=== PATIENT | male | born 1965 | race Native Hawaiian/Other Pacific Islander ===

== ENCOUNTER 2018-09-06 17:32 | Emergency (ER) | payer OTHER ==
[~2018-09-06] VITALS: Ht 175.3 cm; Wt 90.7 kg
[~2018-09-06 17:32] MED LIST: FAMO-119 PO; OMEP20TA7 PO; ONDA4TAB8 SL
[2018-09-06 18:17] LABS: BASOPHILS % (AUTO) 0 % (0-10); EOSINOPHILS # (AUTO) 0.1 10^3/uL (0.0-0.3); EOSINOPHILS % (AUTO) 2 % (0-10); HEMATOCRIT 43 % (40-54); HEMOGLOBIN 14.7 G/DL (13.3-17.7); LYMPHOCYTES # (AUTO) 2.3 X 10^3 (1.0-4.0); LYMPHOCYTES % (AUTO) 39 % (12-44); MEAN CORPUSCULAR HEMOGLOBIN 30 PG (25-34); MEAN CORPUSCULAR HGB CONC 34 G/DL (32-36); MEAN CORPUSCULAR VOLUME 87 FL (80-99); MEAN PLATELET VOLUME 9.6 FL (7.4-10.4); MONOCYTES # (AUTO) 0.9 X 10^3 (0.0-1.0); MONOCYTES % (AUTO) 15 % (0-12); NEUTROPHILS # (AUTO) 2.6 X 10^3 (1.8-7.8); NEUTROPHILS % (AUTO) 44 % (42-75); PLATELET COUNT 261 10^3/uL (130-400); RED CELL DISTRIBUTION WIDTH 12.8 % (10.0-14.5); WHITE BLOOD COUNT 5.9 10^3/uL (4.3-11.0)
[2018-09-06] MEDS ORDERED: PANTOPRAZOLE 40 MG (PROTONIX) VIAL IV STA (18:17)
[2018-09-06] MEDS ORDERED: LACTATED RINGERS 1,000 ML IV ONE (18:17)
[2018-09-06 18:23] LABS: BILIRUBIN,URINE NEGATIVE (NEGATIVE); COLOR,URINE YELLOW; GLUCOSE, URINE (UA) 4+ (NEGATIVE); KETONES,URINE NEGATIVE (NEGATIVE); LEUKOCYTE ESTERASE ,URINE NEGATIVE (NEGATIVE); NITRITE,URINE NEGATIVE (NEGATIVE); PH,URINE 5 (5-9); PROTEIN,URINE 1+ (NEGATIVE); UROBILINOGEN,URINE NORMAL (NORMAL)
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
[2018-09-06 18:30] LABS: CLARITY,URINE CLEAR
[2018-09-06 18:31] LABS: BACTERIA,URINE NEGATIVE /HPF; SQUAMOUS EPITHELIAL CELL,UR RARE /HPF
[2018-09-06 18:39] LABS: ALANINE AMINOTRANSFERASE 19 U/L (0-55); ALKALINE PHOSPHATASE 68 U/L (40-136); AMYLASE 61 U/L (25-125); BILIRUBIN,TOTAL 0.4 MG/DL (0.1-1.0); BUN/CREATININE RATIO 21; CALCIUM 9.2 MG/DL (8.5-10.1); CARBON DIOXIDE 25 MMOL/L (21-32); CHLORIDE 101 MMOL/L (98-107); CREATININE SERUM 0.95 MG/DL (0.60-1.30); GFR ESTIMATED > 60; GLUCOSE 206 MG/DL (70-105); LIPASE 46 U/L (8-78); SODIUM 134 MMOL/L (135-145); TOTAL PROTEIN 6.7 GM/DL (6.4-8.2)
[2018-09-06] MEDS ORDERED: NS IV 1000 ML 1,000 ML IV SCH (18:45)
[2018-09-06] MEDS ORDERED: HOLD METFORMIN - RECEIVED CONTRAST 20 ML VIAL IV SCH (19:00)
[2018-09-06] MEDS ORDERED: IOHEXOL 350 MG/ML 100 ML (OMNIPAQUE 350) VIAL IV ONE (19:00)
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
--- NOTE | 2018-09-06 19:29 | Diagnostic Imaging Report ---
PROCEDURE: CT abdomen and pelvis with contrast. TECHNIQUE: Multiple contiguous axial images were obtained through the abdomen and pelvis after administration of intravenous contrast. Auto Exposure Controls were utilized during the CT exam to meet ALARA standards for radiation dose reduction. INDICATION: Upper abdominal pain with nausea for one week. COMPARISON STUDY: CT scan of the chest, abdomen, and pelvis from 06/19/2015. FINDINGS: The lung bases are clear. The liver, gallbladder, spleen, pancreas, adrenal glands, and kidneys appear normal. The urinary bladder and prostate gland are normal. No hernias are present. There is a normal appearance of the appendix and bowel loops. No ascites, free air, or abnormal adenopathy is present. Mild arterial sclerosis is present. Some degenerative changes are present in the spine and sacroiliac joints. IMPRESSION: There are no acute findings in the abdomen or pelvis. Dictated by: Dictated on workstation # [id number]
[2018-09-06] MEDS ORDERED: HYOS0.1283 SL (19:43)
[2018-09-06] MEDS ORDERED: PANT40TA2 PO (19:43)
[2018-09-06 21:00] VITALS: BP 133/88
== END 2018-09-06 21:01 | disposition home or self-care (01) ==
LOC: EDUNIT# 17:32 → ER 17:34
DX: R10.13 Epigastric pain (principal); E11.65 Type 2 diabetes mellitus with hyperglycemia; I10 Essential (primary) hypertension; Z91.14 Patient's other noncompliance with medication regimen; Z87.19 Personal history of other diseases of the digestive system; Z87.891 Personal history of nicotine dependence
CPT/HCPCS: 36415; 74022; 74177; 80053; 81000; 82150; 83036; 83690; 85025

== ENCOUNTER 2020-11-30 21:37 | Emergency (ER) | payer BC ==
[~2020-11-30] VITALS: Ht 175 cm; Wt 81.8 kg
[~2020-11-30 21:37] MED LIST changes: +HYOS0.1283 SL; +PANT40TA2 PO
[2020-11-30 22:27] LABS: BASOPHILS % (AUTO) 1 % (0-10); EOSINOPHILS # (AUTO) 0.4 10^3/uL (0.0-0.3); EOSINOPHILS % (AUTO) 5 % (0-10); HEMATOCRIT 51 % (40-54); HEMOGLOBIN 17.6 g/dL (13.3-17.7); LYMPHOCYTES % (AUTO) 36 % (12-44); MEAN CORPUSCULAR HEMOGLOBIN 29 pg (25-34); MEAN CORPUSCULAR HGB CONC 35 g/dL (32-36); MEAN CORPUSCULAR VOLUME 85 fL (80-99); MEAN PLATELET VOLUME 9.7 fL (9.0-12.2); MONOCYTES # (AUTO) 0.5 10^3/uL (0.0-1.0); MONOCYTES % (AUTO) 6 % (0-12); NEUTROPHILS # (AUTO) 4.4 10^3/uL (1.8-7.8); NEUTROPHILS % (AUTO) 53 % (42-75); PLATELET COUNT 302 10^3/uL (130-400); WHITE BLOOD COUNT 8.3 10^3/uL (4.3-11.0)
[2020-11-30 22:41] LABS: ALBUMIN 4.3 GM/DL (3.2-4.5); CHLORIDE 98 MMOL/L (98-107); POTASSIUM 4.1 MMOL/L (3.6-5.0); SODIUM 135 MMOL/L (135-145)
[2020-11-30 22:43] LABS: CALCIUM 9.5 MG/DL (8.5-10.1)
[2020-11-30 22:44] LABS: GLUCOSE 240 MG/DL (70-105)
[2020-11-30 22:45] LABS: CARBON DIOXIDE 25 MMOL/L (21-32)
[2020-11-30 22:46] LABS: BILIRUBIN,TOTAL 0.6 MG/DL (0.1-1.0)
[2020-11-30 22:47] LABS: ALKALINE PHOSPHATASE 83 U/L (40-136)
[2020-11-30 22:48] LABS: CREATININE SERUM 0.92 MG/DL (0.60-1.30); GFR ESTIMATED > 60
[2020-11-30 22:49] LABS: BUN/CREATININE RATIO 25
[2020-11-30 22:50] LABS: ALANINE AMINOTRANSFERASE 17 U/L (0-55)
[2020-11-30 22:51] LABS: LIPASE 45 U/L (8-78)
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
[2020-12-01] MEDS ORDERED: NITROGLYCERIN 0.4 MG SL TABS BTL 25'S SL PRN (00:45)
[2020-12-01] MEDS ORDERED: FAMOTIDINE 20 MG (PEPCID) TABLET PO STA (01:06)
[2020-12-01] MEDS ORDERED: ANTACID SUSP 30 ML UDC (MYLANTA) PO ONE (01:15)
[2020-12-01] MEDS ORDERED: ASPIRIN 81 MG CHEW (CHILDREN'S ASA) PO ONE (01:15)
[2020-12-01] MEDS ORDERED: LIDOCAINE 2% VISCOUS 15 ML UDC PO ONE (01:15)
[2020-12-01] MEDS ORDERED: SUCR1TAB36 PO (01:57)
[2020-12-01] MEDS ORDERED: OMEP20TA7 PO (01:57)
[2020-12-01 02:05] VITALS: BP 155/80
--- NOTE | 2020-12-01 08:12 | Diagnostic Imaging Report ---
EXAMINATION: Chest radiograph, portable AP view. DATE: 12/01/2020 12:54 AM INDICATION: 55-year-old male, chest pain. COMPARISON: June 19, 2015. FINDINGS: There are redemonstrated foreign bodies projecting near the medial aspect of the left clavicle. Heart size and mediastinal contours are unchanged and unremarkable. There is no identified pneumothorax. There is no large pleural effusion. There is no identified focal airspace consolidation. There is a chronic appearing deformity of the right lateral clavicle. IMPRESSION: 1. No identified acute cardiopulmonary abnormality. Dictated by: Dictated on workstation # [id number]
== END 2020-12-01 02:05 | disposition home or self-care (01) ==
LOC: EDUNIT# 21:37 → ER 21:39
DX: K21.9 Gastro-esophageal reflux disease without esophagitis (principal); I10 Essential (primary) hypertension; E11.9 Type 2 diabetes mellitus without complications; Z18.10 Retained metal fragments, unspecified; Z79.899 Other long term (current) drug therapy
CPT/HCPCS: 36415; 71045; 80053; 83690; 84484; 85025; 93005

== ENCOUNTER 2021-05-11 03:40 | Emergency (ER) | payer BC ==
[~2021-05-11] VITALS: Ht 175 cm; Wt 81.8 kg
[~2021-05-11 03:40] MED LIST changes: +SUCR1TAB36 PO
[2021-05-11] MEDS ORDERED: PANTOPRAZOLE 40 MG (PROTONIX) VIAL IV ONE (04:00)
[2021-05-11] MEDS ORDERED: ASPIRIN 81 MG CHEW (CHILDREN'S ASA) PO ONE (04:00)
[2021-05-11 04:08] LABS: BASOPHILS # (AUTO) 0.1 10^3/uL (0.0-0.1); BASOPHILS % (AUTO) 1 % (0-10); EOSINOPHILS # (AUTO) 1.6 10^3/uL (0.0-0.3); EOSINOPHILS % (AUTO) 17 % (0-10); HEMATOCRIT 49 % (40-54); HEMOGLOBIN 17.1 g/dL (13.3-17.7); LYMPHOCYTES # (AUTO) 3.5 10^3/uL (1.0-4.0); LYMPHOCYTES % (AUTO) 37 % (12-44); MEAN CORPUSCULAR HEMOGLOBIN 29 pg (25-34); MEAN CORPUSCULAR HGB CONC 35 g/dL (32-36); MEAN CORPUSCULAR VOLUME 85 fL (80-99); MEAN PLATELET VOLUME 9.8 fL (9.0-12.2); MONOCYTES # (AUTO) 0.5 10^3/uL (0.0-1.0); MONOCYTES % (AUTO) 6 % (0-12); NEUTROPHILS # (AUTO) 3.9 10^3/uL (1.8-7.8); NEUTROPHILS % (AUTO) 41 % (42-75); PLATELET COUNT 309 10^3/uL (130-400); WHITE BLOOD COUNT 9.6 10^3/uL (4.3-11.0)
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
[2021-05-11 04:16] LABS: ALBUMIN 4.2 GM/DL (3.2-4.5)
[2021-05-11 04:17] LABS: CHLORIDE 99 MMOL/L (98-107); POTASSIUM 4.1 MMOL/L (3.6-5.0); SODIUM 131 MMOL/L (135-145)
[2021-05-11 04:18] LABS: CALCIUM 9.1 MG/DL (8.5-10.1)
[2021-05-11 04:19] LABS: GLUCOSE 330 MG/DL (70-105)
[2021-05-11 04:20] LABS: CARBON DIOXIDE 21 MMOL/L (21-32)
[2021-05-11 04:21] LABS: BILIRUBIN,TOTAL 0.6 MG/DL (0.1-1.0)
[2021-05-11 04:22] LABS: ALKALINE PHOSPHATASE 87 U/L (40-136); FIBRIN DEGRADATION PRODUCTS 0.34 UG/ML (0.00-0.49); INR 0.9 (0.8-1.4); PROTHROMBIN TIME PATIENT 12.8 SEC (12.2-14.7)
[2021-05-11 04:23] LABS: CREATININE SERUM 1.02 MG/DL (0.60-1.30); GFR ESTIMATED 76
[2021-05-11 04:24] LABS: BUN/CREATININE RATIO 21
[2021-05-11 04:26] LABS: ALANINE AMINOTRANSFERASE 19 U/L (0-55); LIPASE 51 U/L (8-78)
[2021-05-11] MEDS ORDERED: FAMOTIDINE 20 MG (PEPCID) TABLET PO STA (04:43)
--- NOTE | 2021-05-11 04:43 | Diagnostic Imaging Report ---
INDICATION: Chest pain COMPARISON: 12/01/2020 FINDINGS: Single frontal view of the chest demonstrates normal heart size and pulmonary vascularity. The lungs are well aerated and clear. No large pleural effusion or pneumothorax is seen. The visualized osseous structures show no acute abnormalities. Metallic foreign bodies are again noted projecting over the medial left clavicle. IMPRESSION: 1. No acute cardiopulmonary process. Dictated by: Dictated on workstation # [id number]
[2021-05-11] MEDS ORDERED: LIDOCAINE 2% VISCOUS 15 ML UDC PO ONE (04:45)
[2021-05-11] MEDS ORDERED: ANTACID SUSP 30 ML UDC (MYLANTA) PO ONE (04:45)
[2021-05-11 07:54] VITALS: BP 131/92
== END 2021-05-11 07:54 | disposition home or self-care (01) ==
LOC: EDUNIT# 03:40 → ER 03:45
DX: K21.9 Gastro-esophageal reflux disease without esophagitis (principal); R07.89 Other chest pain; I10 Essential (primary) hypertension; E11.9 Type 2 diabetes mellitus without complications; Z20.822 Contact with and (suspected) exposure to COVID-19
CPT/HCPCS: 36415; 71045; 80053; 83690; 83735; 83874; 84145; 84484; 85025; 85379; 85610; 85730; 86141; 87636; 93005; 93041; 96374